=== PATIENT | male | born 1970 | race American Indian/Alaskan Native ===

== ENCOUNTER 2016-04-30 21:18 | Emergency (ER) | payer OTHER ==
[2016-04-30] MEDS ORDERED: MOTRIN ONE (23:06)
[2016-04-30] MEDS ORDERED: MOTRIN PO ONE (23:09)
[2016-05-01 02:16] VITALS: BP 114/72
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
[2016-05-01] MEDS ORDERED: NORCO 5/325 PO ONE (03:26)
== END 2016-05-01 04:02 | disposition home or self-care (01) ==
LOC: ED 21:18
DX: M79.1 Myalgia (principal); V49.59XA Passenger injured in collision with other motor vehicles in traffic accident, initial encounter; Y93.9 Activity, unspecified; Y92.9 Unspecified place or not applicable; Y99.9 Unspecified external cause status